=== PATIENT | female | born 1935 | race Caucasian/White ===

== ENCOUNTER 2019-06-08 18:40 | Inpatient (IN) | payer MEDICARE, OTHER ==
[~2019-06-08] VITALS: Ht 149.9 cm; Wt 42.0 kg
[~2019-06-08 18:40] MED LIST: BACL10TA PO; BUTA1CAP44 PO; CALC-336 PO; FLAX100019 PO; LEVO50TA PO; MULT1TAB74 PO; OMEG1CAP46 PO; OXYC-145 PO; ROPI4TAB22 PO; TRAZ150T78 PO; ZALE5CAP2 PO
[2019-06-08 19:21] LABS: BASOPHILS % (AUTO) 0.5 % (0-1); EOSINOPHILS # (AUTO) 0.1 X10'3 (0-0.9); EOSINOPHILS % (AUTO) 1.4 % (0-6); HEMATOCRIT 41.7 % (35.0-45.0); HEMOGLOBIN 13.7 g/dl (12.0-16.0); LYMPHOCYTES # (AUTO) 2.2 X10'3 (1.1-4.8); LYMPHOCYTES % (AUTO) 27.9 % (21-51); MEAN CORPUSCULAR HEMOGLOBIN 31.7 PG (27.0-31.0); MEAN CORPUSCULAR HGB CONC 32.8 g/dL (33.0-36.5); MEAN CORPUSCULAR VOLUME 96.6 FL (78-98); MEAN PLATELET VOLUME 7.8 FL (7.4-10.4); MONOCYTES # (AUTO) 0.5 X10'3 (0-0.9); MONOCYTES % (AUTO) 6.8 % (2-12); NEUTROPHILS # (AUTO) 5.1 X10'3 (1.8-7.7); NEUTROPHILS % (AUTO) 63.4 % (42-75); PLATELET COUNT 250 X10'3 (140-440); RED BLOOD COUNT 4.31 X10'6 (4.20-5.60); RED CELL DISTRIBUTION WIDTH 14.5 % (11.5-14.5)
[2019-06-08 19:28] LABS: ALANINE AMINOTRANSFERASE 21 U/L (12-78); ALBUMIN 4.4 G/DL (3.4-5.0); ALBUMIN/GLOBULIN RATIO 1.2 (1.1-1.5); ALKALINE PHOSPHATASE 75 IU/L (46-116); ANION GAP 8 (8-16); ASPARTATE AMINO TRANSFERASE 18 U/L (10-37); BILIRUBIN,TOTAL 0.2 MG/DL (0.1-1.0); BLOOD UREA NITROGEN 20 MG/DL (7-18); BUN/CREATININE RATIO 24.1 (6.6-38.0); CALCIUM 9.7 MG/DL (8.5-10.1); CHLORIDE 102 MMOL/L (99-107); CREATININE 0.83 MG/DL (0.40-0.90); GLUCOSE 99 MG/DL (70-104); SODIUM 140 MMOL/L (135-145); TOTAL CARBON DIOXIDE 30.3 MMOL/L (24-32); eGFR 66 ML/MIN
[2019-06-08] MEDS ORDERED: ondansetron/PF 4mg/2ml inj IV ONE (19:45)
[2019-06-08] MEDS ORDERED: fentaNYL/PF 50MCG/1 ML 2ML syringe IV ONE ×2 (19:45→21:05)
[2019-06-08 20:04] LABS: UA COLLECTION TYPE NON-SPECIFIED
[2019-06-08 20:05] LABS: CLARITY,URINE SLIGHTLY CLOUDY (Clear); COLOR,URINE YELLOW (Yellow); GLUCOSE, URINE NEGATIVE (Neg); KETONES,URINE NEGATIVE (Neg); LEUKOCYTE ESTERASE ,URINE LARGE (Neg); NITRITES, URINE NEGATIVE (Neg); OCCULT BLOOD,URINE TRACE-INTACT (Neg); PROTEIN,URINE NEGATIVE (Neg); UROBILINOGEN,URINE 0.2 E.U/dL (0.2-1.0)
[2019-06-08 20:11] LABS: BACTERIA,URINE FEW /HPF (Neg); MUCUS STRANDS NONE SEEN /LPF (Neg); RBC,URINE NONE SEEN /HPF (0-2); RENAL CELLS, URINE FEW /HPF; SQUAMOUS EPITHELIAL CELL,UR FEW /LPF (FEW)
[2019-06-08] MEDS ORDERED: morphine 4 MG/ML inj SYRINge IV ONE (20:45)
[2019-06-08] MEDS ORDERED: proCHLORperazine 10 MG/2 ml inj IV ONE (20:55)
[2019-06-08] MEDS ORDERED: normal saline 1000ml 1,000 ML IV ONE (21:15)
[2019-06-08] MEDS ORDERED: LORazepam 2 mg/ml vial IV ONE (22:00)
[2019-06-08] MEDS ORDERED: magnesium hydroxide 30ml (MOM) UD suspension PO PRN (22:05)
[2019-06-08] MEDS ORDERED: ondansetron/PF 4mg/2ml inj IV PRN (22:05)
[2019-06-08] MEDS ORDERED: acetaminophen 325mg tablet PO PRN (22:05)
[2019-06-08] MEDS ORDERED: mag hydrox/Alum hydrox/simeth 30ml oral suspension PO PRN (22:05)
[2019-06-08] MEDS: normal saline 1000ml 1,000 ML IV SCH (22:26)
--- NOTE | 2019-06-08 22:43 | NUR ---
Received report from SYLVESTER Greenberg. Awaiting patient arrival to the unit.
--- NOTE | 2019-06-08 23:00 | NUR ---
Patient arrived to the floor via gurney. Placed in room 357B. Patient awake and alert on room air, in no apparent distress. Complained of pain to abdomen 8/10. Educated patient that MD ordered pain medication to be given Q4H and it has only been an hour since she last received it. Patient verbalized understanding. Call light and items of frequent use within reach. Will continue to monitor.
[2019-06-08] MEDS ORDERED: GABA-530 PO (23:14)
[2019-06-09] MEDS: HYDROmorphone inj. 0.5 MG/0.5 ML DISP.SYRIN IV PRN ×5 (00:22→17:52)
[2019-06-09 00:40] VITALS: BP 167/18
--- NOTE | 2019-06-09 05:25 | NUR ---
Bladder scan showed 454 cc of urine.
--- NOTE | 2019-06-09 05:40 | NUR ---
Straight Catheterized patient per MD order. 600 cc of clear, yellow urine out. Patient now resting comfortably.
--- NOTE | 2019-06-09 06:26 | NUR ---
Problems reprioritized. Patient report given, questions answered & plan of care reviewed with SYLVESTER Xavier.
[2019-06-09 06:27] LABS: ALBUMIN 3.7 G/DL (3.4-5.0); ANION GAP 9 (8-16); BLOOD UREA NITROGEN 17 MG/DL (7-18); BUN/CREATININE RATIO 22.7 (6.6-38.0); CALCIUM 9.3 MG/DL (8.5-10.1); CHLORIDE 103 MMOL/L (99-107); CREATININE 0.75 MG/DL (0.40-0.90); GLUCOSE 150 MG/DL (70-104); POTASSIUM 3.8 MMOL/L (3.5-5.1); SODIUM 140 MMOL/L (135-145); TOTAL CARBON DIOXIDE 27.7 MMOL/L (24-32); eGFR 74 ML/MIN
[2019-06-09 06:36] LABS: BASOPHILS % (AUTO) 0.3 % (0-1); EOSINOPHILS % (AUTO) 0.2 % (0-6); HEMOGLOBIN 14.3 g/dl (12.0-16.0); LYMPHOCYTES # (AUTO) 0.8 X10'3 (1.1-4.8); LYMPHOCYTES % (AUTO) 6.6 % (21-51); MEAN CORPUSCULAR HEMOGLOBIN 32.7 PG (27.0-31.0); MEAN CORPUSCULAR VOLUME 96.2 FL (78-98); MEAN PLATELET VOLUME 7.9 FL (7.4-10.4); MONOCYTES # (AUTO) 0.7 X10'3 (0-0.9); MONOCYTES % (AUTO) 5.7 % (2-12); NEUTROPHILS # (AUTO) 11.2 X10'3 (1.8-7.7); NEUTROPHILS % (AUTO) 87.2 % (42-75); PLATELET COUNT 196 X10'3 (140-440); RED BLOOD COUNT 4.36 X10'6 (4.20-5.60); WHITE BLOOD COUNT 12.8 X10'3 (4.5-11.0)
[2019-06-09 08:00] VITALS: BP 157/70
[2019-06-09] MEDS: enoxaparin 40mg/0.4ml syringe SUBCUT SCH (08:36)
[2019-06-09] MEDS ORDERED: LEVO75TA7 PO (09:00)
[2019-06-09] MEDS ORDERED: FLUO10TA PO (09:06)
[2019-06-09] MEDS ORDERED: TOLT4CAP14 PO (09:06)
[2019-06-09] MEDS ORDERED: MIRT15TA8 PO (09:06)
[2019-06-09] MEDS ORDERED: BUPR1PAT21 TOP (09:18)
[2019-06-09] MEDS ORDERED: ALEN70TA6 PO (09:18)
[2019-06-09] MEDS ORDERED: PER5325T PO (09:19)
[2019-06-09 11:00] VITALS: BP 139/79
[2019-06-09] MEDS: normal saline 1000ml 1,000 ML IV SCH (13:09)
--- NOTE | 2019-06-09 14:15 | NUR ---
Malnutrition consult: Pt seen at bedside reports a low appetite x 3-4 days r/t stress with decreased PO intake x 2 days and reports 7 lb wt loss in 1 month with UBW 100-105 lbs. Current documented wt is 92 lbs however no documented method of how wt was obtained. If pt truly lost 7 lbs in one month this would be severe wt loss of 7%. Pt currently NPO d/t admit with SBO. Pt appears small but no visible fat or muscle wasting. No decrease in muscle strength or edema. Pt currently lacks a minimum of two criteria for malnutrition at this time. Pt provided with RD contact information. Will continue to follow and monitor qualifying criteria for malnutrition. Addendum: 06/09/19 at [address] Amended: Links added.
[2019-06-09 18:00] VITALS: BP 148/84
[2019-06-09] MEDS ORDERED: butalbital/acetaminophen/caffeine (Fioricet) tablet PO PRN (19:15)
[2019-06-09] MEDS ORDERED: bisacodyl 10mg suppository rectal RC PRN (19:25)
[2019-06-09] MEDS ORDERED: polyethylene glycol 3350 17gm powd pack PO PRN (19:25)
[2019-06-09] MEDS ORDERED: magnesium citrate 296ml oral solution PO ONE (19:25)
[2019-06-09] MEDS: docusate sod 100mg capsule PO SCH (20:31)
[2019-06-09] MEDS: tolterodine 2mg SR capsule (24hr) PO SCH (20:31)
[2019-06-09] MEDS: sennosides/docusate sodium tablet PO SCH (20:31)
[2019-06-09] MEDS: mirtazapine 15mg tablet PO SCH (20:31)
[2019-06-09] MEDS: gabapentin 100mg capsule PO SCH (20:31)
[2019-06-09] MEDS ORDERED: TRAZ150T78 PO (20:37)
--- NOTE | 2019-06-09 21:00 | NUR ---
Call from Dr. Mancera, pt is to have a repeat UA and if positive he wants to be called to give an order for antibiotics. Pt is to have bowel care as well. Addendum: 06/09/19 at 2210 by Angela Lackey RN Amended: Links added.
[2019-06-09] MEDS: oxyCODONE/APAP 5-325mg tablet PO PRN (22:28)
[2019-06-10] VITALS: BP 132/55
--- NOTE | 2019-06-10 03:00 | NUR ---
Unable to phone Dr. Mancera for antibiotic order during shift as UA sample has only a "few" bacteria and unable to see culture. Addendum: 06/10/19 at 0510 by Angela Lackey RN Amended: Links added.
[2019-06-10 05:37] LABS: BASOPHILS % (AUTO) 0.3 % (0-1); EOSINOPHILS # (AUTO) 0.1 X10'3 (0-0.9); EOSINOPHILS % (AUTO) 0.7 % (0-6); HEMATOCRIT 40.5 % (35.0-45.0); HEMOGLOBIN 13.8 g/dl (12.0-16.0); LYMPHOCYTES # (AUTO) 1.2 X10'3 (1.1-4.8); LYMPHOCYTES % (AUTO) 16.4 % (21-51); MEAN CORPUSCULAR HEMOGLOBIN 33.2 PG (27.0-31.0); MEAN CORPUSCULAR HGB CONC 34.1 g/dL (33.0-36.5); MEAN CORPUSCULAR VOLUME 97.2 FL (78-98); MEAN PLATELET VOLUME 8.5 FL (7.4-10.4); MONOCYTES # (AUTO) 0.8 X10'3 (0-0.9); MONOCYTES % (AUTO) 11.1 % (2-12); NEUTROPHILS % (AUTO) 71.5 % (42-75); PLATELET COUNT 210 X10'3 (140-440); RED BLOOD COUNT 4.17 X10'6 (4.20-5.60); RED CELL DISTRIBUTION WIDTH 14.2 % (11.5-14.5); WHITE BLOOD COUNT 7.1 X10'3 (4.5-11.0)
[2019-06-10 06:02] LABS: ALBUMIN 3.5 G/DL (3.4-5.0); ANION GAP 7 (8-16); BLOOD UREA NITROGEN 13 MG/DL (7-18); BUN/CREATININE RATIO 17.3 (6.6-38.0); CALCIUM 9.3 MG/DL (8.5-10.1); CHLORIDE 109 MMOL/L (99-107); CREATININE 0.75 MG/DL (0.40-0.90); GLUCOSE 87 MG/DL (70-104); POTASSIUM 3.8 MMOL/L (3.5-5.1); SODIUM 143 MMOL/L (135-145); TOTAL CARBON DIOXIDE 26.6 MMOL/L (24-32); eGFR 74 ML/MIN
--- NOTE | 2019-06-10 06:15 | NUR ---
Patient in room ED 357. I have received report from SYLVESTER Miller and had the opportunity to ask questions and assume patient care.
--- NOTE | 2019-06-10 06:33 | NUR ---
Problems reprioritized. Patient report given, questions answered & plan of care reviewed with Julia Wright. Addendum: 06/10/19 at 0633 by Angela Lackey RN Amended: Links added.
[2019-06-10 07:00] VITALS: BP 128/63
[2019-06-10] MEDS: sennosides/docusate sodium tablet PO SCH ×2 (07:59→20:52)
[2019-06-10] MEDS: docusate sod 100mg capsule PO SCH ×2 (07:59→20:55)
[2019-06-10] MEDS: OMEGA-3/DHA/EPA/FISH OIL 1 EACH CAPSULE.DR PO SCH (08:01)
[2019-06-10] MEDS: multivitamins, therapeutics tablet PO SCH (08:01)
[2019-06-10] MEDS: calcium carbonate 500mg tablet PO SCH (08:01)
[2019-06-10] MEDS: gabapentin 100mg capsule PO SCH ×3 (08:01→21:41)
[2019-06-10] MEDS: levoTHYROXINE 75mcg tablet PO SCH (08:01)
[2019-06-10] MEDS: oxyCODONE/APAP 5-325mg tablet PO PRN ×3 (08:02→21:57)
[2019-06-10] MEDS: enoxaparin 40mg/0.4ml syringe SUBCUT SCH (08:03)
[2019-06-10] MEDS ORDERED: LORazepam 1 MG tablet PO PRN (10:00)
[2019-06-10] MEDS ORDERED: dextrose 50%-water 50ml dispensing syringe IV PRN (10:00)
[2019-06-10] MEDS ORDERED: LORazepam 2 mg/ml vial IV PRN (10:00)
[2019-06-10] MEDS: normal saline 1000ml 1,000 ML IV SCH (10:33)
[2019-06-10] MEDS: HYDROmorphone inj. 0.5 MG/0.5 ML DISP.SYRIN IV PRN (10:38)
[2019-06-10 11:00] VITALS: BP 134/63
--- NOTE | 2019-06-10 18:00 | NUR ---
Patient in room ED 357. I have received report from AUSTIN PHAN and had the opportunity to ask questions and assume patient care. Addendum: 06/10/19 at 1916 by Citlaly Schulz RN Amended: Links added.
--- NOTE | 2019-06-10 18:00 | NUR ---
Patient in room ED 357. I have received report from Julia PHAN and had the opportunity to ask questions and assume patient care.
--- NOTE | 2019-06-10 18:32 | NUR ---
Problems reprioritized. Patient report given, questions answered & plan of care reviewed with SYLVESTER Boucher.
[2019-06-10 19:46] VITALS: BP 151/76
--- NOTE | 2019-06-10 20:30 | NUR ---
hs meds given and pt given her [facility] for the ct scan in the am .
[2019-06-10] MEDS: mirtazapine 15mg tablet PO SCH (20:54)
[2019-06-10] MEDS: tolterodine 2mg SR capsule (24hr) PO SCH (20:54)
[2019-06-10] MEDS: diatr meglu/diatrizoate 30ml oral sol.-(3 dose) bottle PO SCH (20:55)
--- NOTE | 2019-06-10 21:35 | NUR ---
PT WHEN PASSING HS MEDICATIONS REQUESTED HER TRAZODONE 150MG WHICH SHE HAS BEEN TAKING FOR 15 YEARS AT FOR SLEEP. PT STATES IT IS NORMAL FOR HER TO TAKE THIS WITH REMERON. PT REFUSED PO ATIVAN STATES SHE HAS NEVER TAKEN IT BEFORE AND THE TRAZODONE WORKS FOR HER AT NIGHT. CALL TO DR BURGESS REGARDING THIS AND THE TRAZODONE 150MG DOSE SHE NORMALLY TAKES WAS ORDERED.
[2019-06-10] MEDS: traZODone 150mg tablet PO SCH (21:49)
--- NOTE | 2019-06-10 22:00 | NUR ---
Pt. having multiple small loose stools. Pt. resisting assist from the nurse physician's assistant. Upon entering the room, heard pt. telling nurse physician's assistant to stop helping. Intervened and asked pt to allow nursing staff to assist with care. Pt. verbalized understanding and accepted assistance. Also, pt. is not using the call light for assistance and is a high fall risk; Bed alarm activated as intervention. PIV site patent with NS running at 70ml. Addendum: 06/11/19 at 0100 by Lela Moreno RN Amended: Links added.
--- NOTE | 2019-06-10 23:09 | NUR ---
pt resting at this time after getting back to bed after using bedside commode. for liquid stool.
[2019-06-11] MEDS: normal saline 1000ml 1,000 ML IV SCH ×2 (00:33→16:01)
[2019-06-11 01:00] VITALS: BP 124/57
--- NOTE | 2019-06-11 01:00 | NUR ---
resting without s&S of distress at this time.
--- NOTE | 2019-06-11 02:22 | NUR ---
resting without changes.
--- NOTE | 2019-06-11 04:25 | NUR ---
resting left side no s&s of distress. appears comfortable.
--- NOTE | 2019-06-11 04:46 | NUR ---
contrast screening sheet faxed to ct for pt.
[2019-06-11 05:54] LABS: BASOPHILS % (AUTO) 0.5 % (0-1); EOSINOPHILS # (AUTO) 0.2 X10'3 (0-0.9); EOSINOPHILS % (AUTO) 2.6 % (0-6); HEMATOCRIT 34.4 % (35.0-45.0); HEMOGLOBIN 11.5 g/dl (12.0-16.0); LYMPHOCYTES # (AUTO) 1.6 X10'3 (1.1-4.8); LYMPHOCYTES % (AUTO) 27.2 % (21-51); MEAN CORPUSCULAR HEMOGLOBIN 32.3 PG (27.0-31.0); MEAN CORPUSCULAR HGB CONC 33.4 g/dL (33.0-36.5); MEAN CORPUSCULAR VOLUME 96.6 FL (78-98); MEAN PLATELET VOLUME 8.1 FL (7.4-10.4); MONOCYTES # (AUTO) 0.5 X10'3 (0-0.9); MONOCYTES % (AUTO) 8.6 % (2-12); NEUTROPHILS # (AUTO) 3.5 X10'3 (1.8-7.7); NEUTROPHILS % (AUTO) 61.1 % (42-75); PLATELET COUNT 189 X10'3 (140-440); RED BLOOD COUNT 3.57 X10'6 (4.20-5.60); RED CELL DISTRIBUTION WIDTH 14.1 % (11.5-14.5); WHITE BLOOD COUNT 5.7 X10'3 (4.5-11.0)
--- NOTE | 2019-06-11 06:05 | NUR ---
Patient in room ED 357. I have received report from SYLVESTER Boucher and had the opportunity to ask questions and assume patient care.
--- NOTE | 2019-06-11 06:07 | NUR ---
Problems reprioritized. Patient report given, questions answered & plan of care reviewed with Julia Wright. Addendum: 06/11/19 at 0608 by Citlaly Schulz RN Amended: Links added.
[2019-06-11 06:13] LABS: ALBUMIN 3.1 G/DL (3.4-5.0); ANION GAP 12 (8-16); BLOOD UREA NITROGEN 11 MG/DL (7-18); BUN/CREATININE RATIO 17.2 (6.6-38.0); CALCIUM 8.7 MG/DL (8.5-10.1); CHLORIDE 109 MMOL/L (99-107); CREATININE 0.64 MG/DL (0.40-0.90); GLUCOSE 63 MG/DL (70-104); POTASSIUM 3.6 MMOL/L (3.5-5.1); SODIUM 143 MMOL/L (135-145); TOTAL CARBON DIOXIDE 22.4 MMOL/L (24-32); eGFR 89 ML/MIN
[2019-06-11] MEDS: docusate sod 100mg capsule PO SCH ×2 (06:57→20:12)
[2019-06-11] MEDS: sennosides/docusate sodium tablet PO SCH ×2 (06:58→20:11)
[2019-06-11 07:00] VITALS: BP 131/56
[2019-06-11] MEDS: OMEGA-3/DHA/EPA/FISH OIL 1 EACH CAPSULE.DR PO SCH (07:11)
[2019-06-11] MEDS: diatr meglu/diatrizoate 30ml oral sol.-(3 dose) bottle PO SCH ×2 (07:11→09:10)
[2019-06-11] MEDS: calcium carbonate 500mg tablet PO SCH (07:12)
[2019-06-11] MEDS: levoTHYROXINE 75mcg tablet PO SCH (07:12)
[2019-06-11] MEDS: folic acid 1mg tablet PO SCH (07:12)
[2019-06-11] MEDS: multivitamins, therapeutics tablet PO SCH (07:12)
[2019-06-11] MEDS: thiamine 100mg tablet PO SCH (07:12)
[2019-06-11] MEDS: gabapentin 100mg capsule PO SCH ×3 (07:12→20:11)
[2019-06-11] MEDS: enoxaparin 40mg/0.4ml syringe SUBCUT SCH (07:12)
[2019-06-11] MEDS: oxyCODONE/APAP 5-325mg tablet PO PRN ×3 (07:14→20:14)
[2019-06-11] MEDS ORDERED: multivitamins, therapeutics tablet PO SCH (08:00)
[2019-06-11] MEDS: HYDROmorphone inj. 0.5 MG/0.5 ML DISP.SYRIN IV PRN (09:10)
[2019-06-11] MEDS ORDERED: CefTRIAXone/D5W-Rocephin 1gm 50 ML IV ONE (09:15)
[2019-06-11 11:00] VITALS: BP 163/70
--- NOTE | 2019-06-11 18:35 | NUR ---
Patient in room ED 357. I have received report from Julia Wright and had the opportunity to ask questions and assume patient care. Addendum: 06/11/19 at 1835 by Citlaly Schulz RN Amended: Links added.
--- NOTE | 2019-06-11 18:43 | NUR ---
Problems reprioritized. Patient report given, questions answered & plan of care reviewed with SYLVESTER Boucher.
[2019-06-11 19:30] VITALS: BP 137/58
--- NOTE | 2019-06-11 20:00 | NUR ---
pt medicated for pain and hs meds given to her. assisted up to brp then put back to bed and bed alarm put on for pt safety.
[2019-06-11] MEDS: traZODone 150mg tablet PO SCH (20:11)
[2019-06-11] MEDS: mirtazapine 15mg tablet PO SCH (20:12)
[2019-06-11] MEDS: tolterodine 2mg SR capsule (24hr) PO SCH (20:13)
--- NOTE | 2019-06-11 22:06 | NUR ---
pt had tabs and bed alarm applied found pt had gotten to bed control without setting it off and turned it off and was up in the room so tabs applied as pt was up in the room changing the liens.
--- NOTE | 2019-06-11 22:58 | NUR ---
pt resting eyes closed no s&s of distress
[2019-06-12 00:30] VITALS: BP 145/77
--- NOTE | 2019-06-12 00:33 | NUR ---
resting eyes closed without s&s of distress at this time.
--- NOTE | 2019-06-12 01:07 | NUR ---
gilles used bedside commode then back to bed.
--- NOTE | 2019-06-12 03:05 | NUR ---
resting on side eyes closed without s&s of distress.
--- NOTE | 2019-06-12 04:31 | NUR ---
pt awoke from sleep with lab present drawing blood
[2019-06-12 04:53] LABS: BASOPHILS % (AUTO) 0.3 % (0-1); EOSINOPHILS # (AUTO) 0.1 X10'3 (0-0.9); EOSINOPHILS % (AUTO) 2.8 % (0-6); HEMATOCRIT 32.6 % (35.0-45.0); LYMPHOCYTES # (AUTO) 1.3 X10'3 (1.1-4.8); LYMPHOCYTES % (AUTO) 26.5 % (21-51); MEAN CORPUSCULAR HEMOGLOBIN 32.4 PG (27.0-31.0); MEAN CORPUSCULAR HGB CONC 33.7 g/dL (33.0-36.5); MEAN CORPUSCULAR VOLUME 96.1 FL (78-98); MONOCYTES # (AUTO) 0.4 X10'3 (0-0.9); NEUTROPHILS # (AUTO) 3.1 X10'3 (1.8-7.7); NEUTROPHILS % (AUTO) 61.4 % (42-75); PLATELET COUNT 181 X10'3 (140-440); RED BLOOD COUNT 3.39 X10'6 (4.20-5.60); RED CELL DISTRIBUTION WIDTH 13.6 % (11.5-14.5)
[2019-06-12] MEDS: normal saline 1000ml 1,000 ML IV SCH ×2 (04:57→20:00)
[2019-06-12] MEDS: oxyCODONE/APAP 5-325mg tablet PO PRN ×2 (04:57→09:20)
--- NOTE | 2019-06-12 05:02 | NUR ---
pt awoke medicated with percocet for pain and inc of stool. skin care done and positioned to comfort.
[2019-06-12 05:07] LABS: ALBUMIN 2.7 G/DL (3.4-5.0); ANION GAP 7 (8-16); BLOOD UREA NITROGEN 4 MG/DL (7-18); BUN/CREATININE RATIO 6.6 (6.6-38.0); CALCIUM 7.6 MG/DL (8.5-10.1); CHLORIDE 112 MMOL/L (99-107); CREATININE 0.61 MG/DL (0.40-0.90); GLUCOSE 87 MG/DL (70-104); POTASSIUM 3.4 MMOL/L (3.5-5.1); SODIUM 143 MMOL/L (135-145); TOTAL CARBON DIOXIDE 24.1 MMOL/L (24-32); eGFR > 90 ML/MIN
--- NOTE | 2019-06-12 05:28 | NUR ---
up to and from bedside commode with assistance and skin care done and cream to her rectal area. pt tolerated well. still not passing to blockage remains with greenish brown stool looks like food partical's.
--- NOTE | 2019-06-12 06:35 | NUR ---
Problems reprioritized. Patient report given, questions answered & plan of care reviewed with ISABELA PHAN. Addendum: 06/12/19 at 0636 by Citlaly Schulz RN Amended: Links added.
--- NOTE | 2019-06-12 06:41 | NUR ---
Problems reprioritized. Patient report given, questions answered & plan of care reviewed with ISABELA PHAN. Addendum: 06/12/19 at 0641 by Citlaly Schulz RN Amended: Links added.
--- NOTE | 2019-06-12 06:48 | NUR ---
Patient in room ED 357. I have received report from Citlaly PHAN and had the opportunity to ask questions and assume patient care.
[2019-06-12 07:21] VITALS: BP 149/72
[2019-06-12] MEDS ORDERED: potassium CL 10mEq/100ml bag 100 ML IV PRN (08:30)
[2019-06-12] MEDS: sennosides/docusate sodium tablet PO SCH ×2 (08:30→20:03)
[2019-06-12] MEDS ORDERED: potassium Cl 20 mEq SR tablet PO PRN ×2 (08:30)
[2019-06-12] MEDS ORDERED: magnesium 4gm in 100ml NS 100 ML IV PRN (08:30)
[2019-06-12] MEDS: gabapentin 100mg capsule PO SCH ×3 (08:30→20:03)
[2019-06-12] MEDS ORDERED: magnesium Cl slow-release 64mg tablet PO PRN (08:30)
[2019-06-12] MEDS: levoTHYROXINE 75mcg tablet PO SCH (08:30)
[2019-06-12] MEDS: multivitamins, therapeutics tablet PO SCH (08:30)
[2019-06-12] MEDS: CefTRIAXone/D5W-Rocephin 1gm 50 ML IV SCH (08:31)
[2019-06-12] MEDS: calcium carbonate 500mg tablet PO SCH (08:31)
[2019-06-12] MEDS: folic acid 1mg tablet PO SCH (08:31)
[2019-06-12] MEDS: thiamine 100mg tablet PO SCH (08:31)
[2019-06-12] MEDS: docusate sod 100mg capsule PO SCH ×2 (08:31→20:01)
[2019-06-12] MEDS: enoxaparin 40mg/0.4ml syringe SUBCUT SCH (08:32)
[2019-06-12] MEDS: OMEGA-3/DHA/EPA/FISH OIL 1 EACH CAPSULE.DR PO SCH (08:37)
--- NOTE | 2019-06-12 10:08 | NUR ---
Patient in with tech to shower Addendum: 06/12/19 at 1009 by Shakila Peña RN Amended: Links added.
[2019-06-12 10:37] LABS: MAGNESIUM 1.4 MG/DL (1.5-2.4)
[2019-06-12 12:24] VITALS: BP 150/72
--- NOTE | 2019-06-12 13:11 | NUR ---
Initial: Pt admit w/ partial SBO now resolved per MD note and advanced to clear liquids. 8 BM's on 06/11 following SBO resolution per MD. RD left message w/ RN regarding possibility of opioid antagonist per MD approval since receiving dilaudid and percocet. Tolerating clear liqiuds w/ 100% PO meals. Ensure Clears TIDWM added for additional needs; pending MD verification prior to sending w/ meals. Pt hx etoh receiving thiamin/folic/MVI though pt reports only once glass of wine per day. Receiving routine bowel care as well. Will monitor for diet advancement and further ONS needs. Rec: 1. advance diet per MD to regular 2. ensure clear TIDWM while on clears; pending MD approval prior to sending on trays 3. monitor hydration and encourage soluble fiber food options once as diet advances given hx chronic constipation 4. wt per rx Addendum: 06/12/19 at [address] Amended: Links added.
[2019-06-12] MEDS ORDERED: NUT.TX.IMPAIRED DIGEST FXN (Ensure Clear) 237 ML PO SCH (18:00)
--- NOTE | 2019-06-12 18:26 | NUR ---
Patient in room ED 357. I have received report from Citlaly PHAN and had the opportunity to ask questions and assume patient care.
[2019-06-12 19:00] VITALS: BP 151/68
--- NOTE | 2019-06-12 19:45 | NUR ---
pt given hs meds after talking with her and explaining why we are replacing the potassium and magnesium on her and why she is still having loose stools and plan of care with her as well of how her medical history relates to this pt stated she felt much better about it. Then Dr Mcmanus came in to talk with her aware she is having loose stools that is watery with what looks like clumps of food he told her since shes stooling no plan for surgery but he will some for tests to rule out plaque formation etc for her.
[2019-06-12] MEDS: tolterodine 2mg SR capsule (24hr) PO SCH (20:02)
[2019-06-12] MEDS: mirtazapine 15mg tablet PO SCH (20:02)
[2019-06-12] MEDS: traZODone 150mg tablet PO SCH (20:02)
--- NOTE | 2019-06-12 21:10 | NUR ---
pt resting without complaints at this time.
--- NOTE | 2019-06-12 23:00 | NUR ---
pt resting eyes closed without s&s of distress at this time.
[2019-06-13] VITALS: BP 128/60
--- NOTE | 2019-06-13 00:02 | NUR ---
pt awoke up to bedside commode to void and for liquid stool. had small carrot sized clump of stool. 1st time semi solid stool noted.
--- NOTE | 2019-06-13 01:00 | NUR ---
resting without changes.
--- NOTE | 2019-06-13 03:35 | NUR ---
resting without s&s of distress.
[2019-06-13] MEDS: oxyCODONE/APAP 5-325mg tablet PO PRN (05:20)
--- NOTE | 2019-06-13 05:26 | NUR ---
pt c/o abd and back pain and medicated for this with percocet po.
[2019-06-13 05:59] LABS: BASOPHILS % (AUTO) 0.5 % (0-1); EOSINOPHILS # (AUTO) 0.2 X10'3 (0-0.9); EOSINOPHILS % (AUTO) 3.4 % (0-6); HEMATOCRIT 35.1 % (35.0-45.0); HEMOGLOBIN 11.9 g/dl (12.0-16.0); LYMPHOCYTES % (AUTO) 41.6 % (21-51); MEAN CORPUSCULAR HEMOGLOBIN 32.5 PG (27.0-31.0); MEAN CORPUSCULAR HGB CONC 33.8 g/dL (33.0-36.5); MEAN CORPUSCULAR VOLUME 96.4 FL (78-98); MEAN PLATELET VOLUME 8.3 FL (7.4-10.4); MONOCYTES # (AUTO) 0.5 X10'3 (0-0.9); MONOCYTES % (AUTO) 10.6 % (2-12); NEUTROPHILS # (AUTO) 2.1 X10'3 (1.8-7.7); NEUTROPHILS % (AUTO) 43.9 % (42-75); PLATELET COUNT 195 X10'3 (140-440); RED BLOOD COUNT 3.65 X10'6 (4.20-5.60); RED CELL DISTRIBUTION WIDTH 13.6 % (11.5-14.5); WHITE BLOOD COUNT 4.8 X10'3 (4.5-11.0)
[2019-06-13 06:13] LABS: ALBUMIN 3.1 G/DL (3.4-5.0); ANION GAP 6 (8-16); BLOOD UREA NITROGEN 2 MG/DL (7-18); BUN/CREATININE RATIO 3.3 (6.6-38.0); CALCIUM 8.3 MG/DL (8.5-10.1); CHLORIDE 111 MMOL/L (99-107); GLUCOSE 87 MG/DL (70-104); MAGNESIUM 1.3 MG/DL (1.5-2.4); POTASSIUM 4.2 MMOL/L (3.5-5.1); SODIUM 143 MMOL/L (135-145); TOTAL CARBON DIOXIDE 25.8 MMOL/L (24-32); eGFR > 90 ML/MIN
--- NOTE | 2019-06-13 06:25 | NUR ---
Patient in room ED 357. I have received report from Citlaly PHAN and had the opportunity to ask questions and assume patient care.
--- NOTE | 2019-06-13 06:30 | NUR ---
Problems reprioritized. Patient report given, questions answered & plan of care reviewed with Shakila Wright. Addendum: 06/13/19 at 0722 by Citlaly Schulz RN Amended: Links added.
[2019-06-13 06:59] VITALS: BP 143/80
[2019-06-13] MEDS: CefTRIAXone/D5W-Rocephin 1gm 50 ML IV SCH (07:45)
[2019-06-13] MEDS: gabapentin 100mg capsule PO SCH ×2 (07:47→12:41)
[2019-06-13] MEDS: calcium carbonate 500mg tablet PO SCH (07:47)
[2019-06-13] MEDS: thiamine 100mg tablet PO SCH (07:47)
[2019-06-13] MEDS: docusate sod 100mg capsule PO SCH (07:47)
[2019-06-13] MEDS: sennosides/docusate sodium tablet PO SCH (07:47)
[2019-06-13] MEDS: levoTHYROXINE 75mcg tablet PO SCH (07:47)
[2019-06-13] MEDS: multivitamins, therapeutics tablet PO SCH (07:47)
[2019-06-13] MEDS: folic acid 1mg tablet PO SCH (07:47)
[2019-06-13] MEDS: OMEGA-3/DHA/EPA/FISH OIL 1 EACH CAPSULE.DR PO SCH (07:47)
[2019-06-13] MEDS: enoxaparin 40mg/0.4ml syringe SUBCUT SCH (07:58)
[2019-06-13] MEDS: HYDROmorphone inj. 0.5 MG/0.5 ML DISP.SYRIN IV PRN (07:59)
[2019-06-13] MEDS ORDERED: BUPRENORPHINE TP SCH (08:00)
[2019-06-13] MEDS ORDERED: PER5325T PO (09:27)
[2019-06-13] MEDS: normal saline 1000ml 1,000 ML IV SCH (09:30)
[2019-06-13 11:20] LABS: PRE OP PARTIAL THROMB. TIME 24 SECONDS (22-32)
--- NOTE | 2019-06-13 12:11 | NUR ---
Vascular completed as ordered by
[2019-06-13 12:23] VITALS: BP 155/78
--- NOTE | 2019-06-13 14:09 | NUR ---
Patient discharged as ordered by MD. Patient has all belongings, education completed, all medication times for next dose has been educated on with patient, acknowledgement verbalized. Patient walked out to [facility] to sit and wait for WC ride to [facility]. Family member coming to picker operator patient. Prescription given for controlled medication to patient in packet. Patient will fill at her pharmacy. Patient to follow up with own PCP.
== END 2019-06-13 14:07 | disposition home or self-care (01) | DRG 389 ==
LOC: ER 18:41 → SUR 3N 22:53 → CMPBEDREQ 06-12 19:33
PROVIDERS: ADMIT Hospitalist; ATTEND Internal Medicine
PROC: 0D9670Z Drainage of Stomach with Drainage Device, Via Natural or Artificial Opening (ICD-10-PCS; principal; 2019-06-08)
DX: K56.600 Partial intestinal obstruction, unspecified as to cause (principal); E44.0 Moderate protein-calorie malnutrition; K57.30 Diverticulosis of large intestine without perforation or abscess without bleeding; G89.4 Chronic pain syndrome; E03.9 Hypothyroidism, unspecified; F11.90 Opioid use, unspecified, uncomplicated; E86.0 Dehydration; E83.42 Hypomagnesemia; F10.20 Alcohol dependence, uncomplicated; M54.9 Dorsalgia, unspecified; R91.1 Solitary pulmonary nodule; Z79.899 Other long term (current) drug therapy; Z90.710 Acquired absence of both cervix and uterus; Z90.49 Acquired absence of other specified parts of digestive tract; Z88.8 Allergy status to other drugs, medicaments and biological substances; Z72.89 Other problems related to lifestyle
CPT/HCPCS: 36415; 71045; 74018; 74176; 80048; 80053; 81001; 82948; 83735; 84443; 84484; 85025; 85610; 85730; 87077; 87081; 87088; 87186; 93005; 93975; 96361; 96374; 96375; 96376; 99285; G0378; J0696; J0780; J1170; J1650; J2060; J2270; J2405; J3010; J7030; Q9963

== ENCOUNTER → 2020-05-17 | Outpatient (CLI) | payer MEDICARE, OTHER ==
[~2020-05-17] MED LIST changes: +ALEN70TA6 PO; -BACL10TA PO; +BUPR1PAT21 TOP; +GABA-530 PO; -LEVO50TA PO; +LEVO75TA7 PO; +MIRT15TA8 PO; +MULT-620 PO; -MULT1TAB74 PO; -OXYC-145 PO; +PER5325T PO; -ROPI4TAB22 PO; +TOLT4CAP14 PO; -ZALE5CAP2 PO
== END | disposition home or self-care (01) ==
LOC: 64 CT 08:44
PROVIDERS: ATTEND Surgery
DX: K57.30 Diverticulosis of large intestine without perforation or abscess without bleeding (principal); M51.34 Other intervertebral disc degeneration, thoracic region; J98.4 Other disorders of lung; Z90.49 Acquired absence of other specified parts of digestive tract
CPT/HCPCS: 74176

== ENCOUNTER 2020-08-20 19:46 | Emergency (ER) | payer MEDICARE, OTHER ==
[~2020-08-20] VITALS: Ht 149.9 cm; Wt 45.0 kg
[~2020-08-20 19:46] MED LIST changes: -ALEN70TA6 PO; +ALEN70TA69 PO
[2020-08-20 19:58] VITALS: BP 135/68
== END 2020-08-21 00:14 | disposition home or self-care (01) ==
LOC: ER 19:47
DX: S81.801D Unspecified open wound, right lower leg, subsequent encounter (principal); G89.29 Other chronic pain; Z90.710 Acquired absence of both cervix and uterus; Z98.890 Other specified postprocedural states; Z88.8 Allergy status to other drugs, medicaments and biological substances; Z79.899 Other long term (current) drug therapy; X58.XXXD Exposure to other specified factors, subsequent encounter
CPT/HCPCS: 99281